=== PATIENT | female | born 1945 | race Caucasian/White ===

== ENCOUNTER 2016-03-17 07:30 | Day surgery (SDC) | payer MEDICARE, OTHER ==
[~2016-03-17] VITALS: Ht 165.1 cm; Wt 70.0 kg
[~2016-03-17 07:30] MED LIST: ADV250INH IH; ALBU18HF INH; ATRV10T PO; AZEL23SP NS; ESTR10TA VAGINAL; GLUC100016 PO; LISI-567 PO; MONT10TA20 PO; MULT-1018 PO
[2016-03-17 07:47] VITALS: BP 113/68; PULSE 67; RESP 16; O2SAT 100
[2016-03-17] MEDS ORDERED: 0.9% Sodium Chloride 1,000 ML IV PRN (08:13)
[2016-03-17] MEDS ORDERED: Sodium Chloride LOK Flush 10 mL Syringe IV PRN (08:15)
[2016-03-17] MEDS ORDERED: fentaNYL-PF 50 mCg/mL 2 mL Inj IVPUSH PRN (08:15)
[2016-03-17 09:52] VITALS: BP 122/69; PULSE 62; RESP 14; O2SAT 99
[2016-03-17 10:01] VITALS: BP 120/67; PULSE 63; RESP 16; O2SAT 99
[2016-03-17 10:08] VITALS: BP 142/82; PULSE 63; RESP 14; O2SAT 98
--- NOTE | 2016-03-17 10:16 | ENDO ---
[address] [address] ENDOSCOPY PROCEDURE PATIENT: TK PANDA : 1945 MR#: [id number] ADMIT: 03/17/2016 JOB ID: [id number] DATE OF SERVICE: 03/17/2016 PROCEDURE PERFORMED: Colonoscopy. INDICATIONS: Screening. ASA CLASSIFICATION: The patient's ASA classification is II. MALLAMPATI SCORE: Mallampati score was 2. MEDICATIONS: 1. Versed 4 mg. 2. Fentanyl 100 mcg. INSTRUMENT USED: [id number]. PREPARATION QUALITY: Good. PROCEDURE DETAILS: After informed consent was obtained, the patient was brought into the GI suite, where she was placed on oxygen via nasal cannula and monitored with continuous pulse oximeter, telemetry, and blood pressure monitoring. A time-out was performed. Then, she was placed in the left lateral decubitus position and medications were administered for sedation. Digital rectal exam was performed which was unremarkable. The colonoscope was then inserted into the rectum and advanced under direct visualization to the cecum, which was identified by the presence of the ileocecal valve and appendiceal orifice. Once the cecum was reached, the colonoscope was withdrawn back into the rectum, as the mucosa and lumen were examined. In the rectum, retroflexion was performed. Following retroflexion, remaining air in the rectum was suctioned, and procedure was completed. FINDINGS: 1. In the distal transverse colon, there was a diminutive polyp that was removed with cold biopsy forceps. 2. Otherwise normal exam from rectum to cecum. IMPRESSION: Transverse colon polyp. RECOMMENDATIONS: Repeat colonoscopy pending polyp pathology results. COMPLICATIONS: None. ESTIMATED BLOOD LOSS: Less than 5 mL.
--- NOTE | 2016-03-18 11:46 | PATH ---
SURGICAL PATHOLOGY Attending Physician:Anderson Segovia CASE STATUS: Signed Out PATIENT NAME: TK PANDA PID: [id number] : 1945 DATE COLLECTED:03/17/2016 17:22 SPECIMEN: Colon, Biopsy CLINICAL HISTORY: A: TRANSVERSE COLON POLYP X1 FINAL DIAGNOSIS: Transverse Colon Polyp: Sessile serrated adenoma. ICD10: D12.3 GROSS DESCRIPTION: The specimen is received in one formalin filled container labeled with the patient's name, sublabeled "transverse colon polyp x1" and consists of 2 portions of tissue which aggregate to 0.3 x 0.2 x 0.2 CM. The specimen is entirely submitted in one cassette. 03/17/2016 [facility] ICD-9 CODES: CPT CODES: 1: 42678 Electronically Signed Out Herson Zambrano MD [facility] [address] [facility], [place] [address] Technical component performed at [facility], [address] [place] [address] Ave[address], [place], [address]
== END 2016-03-17 23:59 | disposition home or self-care (01) ==
LOC: END 07:30
PROVIDERS: ATTEND Internal Medicine Gastroenterology
DX: Z12.11 Encounter for screening for malignant neoplasm of colon (principal); D12.3 Benign neoplasm of transverse colon; Z79.899 Other long term (current) drug therapy
CPT/HCPCS: 45380; 88305; G0500; J2250; J7030

== ENCOUNTER 2016-06-22 12:14 | Emergency (ER) | payer MEDICARE, OTHER ==
[~2016-06-22] VITALS: Ht 167.6 cm; Wt 72.7 kg
--- NOTE | 2016-06-22 12:24 | ED.REPORT ---
HPI-Chest Pain 40 and Over Date of Service June 22, 2016 ED Provider: Kirk Mitchell MD The patient is a 71 year old female who presents to the ED due to an episode of near syncope just [employer]. The pt's was at the eye doctor earlier today. She was standing and talking to a nurse when all of a sudden she began to get lightheaded, dizzy, and feel faint. She sat down and experienced diaphoresis, chills, and became pale. A nurse took her blood pressure and found she was bradycardic (54). She denies chest pain, difficulty breathing, palpitations, weakness, numbness, headache, difficulty speaking/swallowing, changes in vision. She has never had an episode like this before. When the medics arrived and she had positive orthostatics. The pt is athletic and took a 9 mile bike ride yesterday.This was her first large bike ride of the season, her biggest workout in a while. She expresses that she believes she is dehydrated. Nursing Notes Stated Complaint: NEAR SYNCOPE Nursing Notes Reviewed: Yes Allergies: Coded Allergies: iron (Verified Allergy, Severe, Anaphylaxis, 06/22/16) infusion Sulfa (Sulfonamide Antibiotics) (Verified Allergy, Unknown, 03/16/16) erythromycin base (Verified Allergy, Unknown, 03/16/16) ketoconazole (Verified Allergy, Unknown, 03/16/16) Scheduled Atorvastatin (Lipitor) 10 Mg Tab 10 MG PO DAILY Fluticasone/Salmeterol (Advair 250-50 Diskus) 60 Puff/Inh Disk 1 PUFF IH BID Glucosamine Sulfate 2Kcl (Glucosamine) 1,000 Mg Tablet 500 MG PO BID Lisinopril (Lisinopril) 20 Mg Tablet 20 MG PO DAILY Montelukast (Singulair) 10 Mg Tablet 10 MG PO HS Multivitamin (Multi Vitamin Daily) 1 Each Tablet 1 EACH PO DAILY Scheduled PRN Albuterol Sulfate (Ventolin HFA Inhaler) 200 Puff/18 Gm Inhaler 1 PUFF INH Q4 PRN PRN For Wheezing Miscellaneous Medications Azelastine/Fluticasone (Dymista Nasal [place]) 23 Gm [place].pump 23 GM NS Estradiol (Vagifem) 10 Mcg Tablet 10 MCG VAGINAL General Time Seen by MD: 12:23 Chief Complaint Other (near syncope) Hx Obtained From: Patient Arrived By: Ambulance Sudden in Onset?: Yes Onset Occurred: Just prior to arrival Symptom Duration: Since onset Severity: Current: No pain currently Recent Healthcare: No recent doctor visit, No recent hospitalization Similar Sx Previous: No Past Medical History Past Medical History Reports: Hypertension Past Surgical History right shoulder Social History Other Social History: Good social support, , Local resident Ambulatory Status Independent Review of Systems Constitutional: Reports: Chills Cardiovascular: Denies: Chest pain GI: Denies: Nausea, Vomiting Skin: Reports Diaphoresis Neurologic: Reports: Dizziness, Lightheaded, Syncope (*near syncope), Denies: Change LOC, Headache, Numbness, Slurred speech, Vision change, Weakness Complete sys rev & neg: except as marked. Physical Exam Initial Vital Signs Vital Signs (First) Date Time Temp Pulse Resp B/P Pulse Ox O2 Delivery O2 Flow Rate FiO2 06/22/16 12:32 36.5 58 13 154/70 100 Room Air 0 Initial VS: Reviewed Head / Eyes: Atraumatic, Normocephalic ENT: Mucous membranes moist, Conjunctiva normal Neck: Supple, Non-tender, Full range of motion Back: No CVA tenderness Lymphatic: No lymphadenopathy Extremities: Vascular intact, Neuro intact, No swelling Skin: Warm, Dry Neurologic: Alert Psychiatric: Mood/affect normal General/Constitutional: Awake, Alert Respiratory / Chest: Atraumatic, Breath sounds NL, Breath sounds = bilat Cardiovascular: Heart rate NL, Regular rhythm, Heart sounds NL Abdomen: Atraumatic, Soft, Non-tender Interpretation & Diagnostics Lab Results Interpretation Result Diagram: 06/22/16 1300 06/22/16 1300 Test 06/22/16 13:00 06/22/16 13:34 White Blood Count 5.5th/mm3 (3.8-10.1) Red Blood Count 4.08mil/mm3 (3.90-5.20) Hemoglobin 11.7g/dL (12.0-15.6) Hematocrit 35.5% (35.0-46.0) Mean Corpuscular Volume 87.0fL (81-100) Mean Corpuscular Hemoglobin 28.7pg (27.0-35.0) Mean Corpuscular Hemoglobin Concent 33.0% (32.0-37.0) Red Cell Distribution Width 13.2% (12.3-15.4) Platelet Count 204bil/L (150-400) Neutrophils (%) (Auto) 64.8% (40-74) Lymphocytes (%) (Auto) 26.2% (14-46) Monocytes (%) (Auto) 5.6% (4-12) Eosinophils (%) (Auto) 2.5% (0-5) Basophils (%) (Auto) 0.7% (0-3) Sodium Level 139mEq/L (134-144) Potassium Level 3.9mEq/L (3.5-5.2) Chloride Level 102mEq/L (97-108) Carbon Dioxide Level 24mmol/L (18-29) Blood Urea Nitrogen 21mg/dL (8-27) Creatinine 1.03mg/dL (0.57-1.00) Estimat Glomerular Filtration Rate 76mL/min (>59) Glucose Level 103mg/dL (60-99) Calcium Level 9.0mg/dL (8.5-10.1) Magnesium Level 1.9mg/dL (1.6-2.6) Total Bilirubin 0.7mg/dL (0.0-1.2) Aspartate Amino Transf (AST/SGOT) 18U/L (0-50) Alanine Aminotransferase (ALT/SGPT) 14U/L (0-32) Alkaline Phosphatase 78U/L (25-165) Troponin T < 0.010ug/L (0.0-0.011) Total Protein 6.6g/dL (6.4-8.4) Albumin 3.9g/dL (3.4-5.0) Hold [place] Top Tube Received (Received) Hold James Top Tube Received (Received) Hold Urine Received (Received) ECG Interpretation ECG Interpretation: no ST changes Time: 12:27 Interpreted by: ED physician Normal ECG Interpretation: Normal sinus rhythm (rate 60) X-Ray Chest Interpretation Chest Xray Interpretation: IMPRESSION: No acute disease Dictated by: Matthew Logan M.D. on 06/22/2016 at 13:13 Approved by: Matthew Logan M.D. on 06/22/2016 at 13:14 View: Portable Interpretation / Wet Read by: Interpret - Radiologist Re-Eval/Medical Decision Med Decision/Clinical Course 71-year-old female with near syncopal event today while her was at the doctor. She reports she was listening to them describe his eye surgery to him. She eventually felt lightheaded and dizzy and almost passed out but did not syncopize. She had no cardiac prodrome. She was reportedly orthostatic by paramedics and given fluids. On arrival her orthostatics were normal after she had received fluids. Her symptoms had resolved. Her labs are stable. She has no sign symptoms of stroke. Her neurological exam is normal. She felt much better with IV fluids and was discharged home. Likely vasovagal versus orthostatic. Follow-up with primary doctor in several days. Return precautions given. Time of Eval: 12:36 Re-Evaluation/Progress Note: Plan for fluids and chest x-ray. Time of Eval: 14:06 Re-Evaluation/Progress Note: Pt rechecked. She is feeling much better after fluids. Informed her of diagnosis and plan for discharge. F/U and RTER warnings given. Pt understands and agrees with plan. All questions addressed. Counseled Regarding: Diagnosis, Lab results, Need for follow-up, When/why to return to ED Discharge & Departure Primary Impression: Near syncope Additional Impression: Orthostatic hypertension Disposition: Home Discharge Condition All VS Reviewed: Yes Condition: Stable Additional Instructions: The episode was mostly likely related to low blood pressure versus vaso vagal syncope. Your labs are reassuring. Follow up with your primary care physician in 1-2 days. Return to the Emergency Department for any new or worsening symptoms including recurrent episodes, chest pain, or difficulty breathing. Have a great spring and enjoy the sunshine! Referrals: Christ Gage MD (PCP) Scribe Attestation Portion of this note were transcribed by Debbie Jacobs. I, Dr. Mitchell, personally performed the history, physical exam, and medical decision-making: I reviewed and confirmed the accuracy for the information in the transcribed note. Signed by: bess Ansari, 06/22/16 1500 copies to: Christ Gage MD, Ben M MD June 22, 2016 12:24 Debbie Jacobs June 22, 2016 12:36
[2016-06-22 12:32] VITALS: BP 154/70; PULSE 58; RESP 13; O2SAT 100
[2016-06-22] MEDS ORDERED: 0.9% Sodium Chloride 1,000 ML IV ONE (12:38)
[2016-06-22 12:46] VITALS: BP 144/68; PULSE 61
[2016-06-22 12:48] VITALS: BP 160/72; PULSE 61
[2016-06-22 13:09] LABS: BASOPHILS % (AUTO) 0.7 % (0-3); EOSINOPHILS % (AUTO) 2.5 % (0-5); MONOCYTES % (AUTO) 5.6 % (4-12); Mean Corpuscular Hemoglobin 28.7 pg (27.0-35.0); NEUTROPHILS % (AUTO) 64.8 % (40-74); Platelet Count 204 bil/L (150-400)
--- NOTE | 2016-06-22 13:16 | DRSVH ---
PROCEDURE: X-RAY CHEST ONE VIEW, PORTABLE ([id number]) INDICATIONS: near syncope TECHNIQUE: One view of the chest was acquired. COMPARISON: None. FINDINGS: Surgical changes and devices: None. Lungs and pleura: No pleural effusions or pneumothorax. Lungs are clear. Mediastinum: Mediastinal contours appear normal. Heart size is normal. Bones and chest wall: No suspicious bony lesions. Overlying soft tissues appear unremarkable. IMPRESSION: No acute disease Dictated by: Matthew Logan M.D. on 06/22/2016 at 13:13 Approved by: Matthew Logan M.D. on 06/22/2016 at 13:14
[2016-06-22 13:45] LABS: Magnesium 1.9 mg/dL (1.6-2.6); TROPONIN T < 0.010 ug/L (0.0-0.011)
[2016-06-22 14:29] VITALS: BP 142/66; PULSE 72; RESP 20; O2SAT 98
== END 2016-06-22 14:30 | disposition home or self-care (01) ==
LOC: SED 12:14 → EDUNIT# 12:14 → EDBD 12:14 → SED 14:30
DX: R55 Syncope and collapse (principal); I10 Essential (primary) hypertension; Z88.1 Allergy status to other antibiotic agents; Z88.2 Allergy status to sulfonamides; Z88.8 Allergy status to other drugs, medicaments and biological substances
CPT/HCPCS: 36415; 71010; 80053; 83735; 84484; 85025; 93005; 99285; J7030